=== PATIENT | male | born 2000 | race Caucasian/White ===

== ENCOUNTER 2022-08-03 11:29 | Emergency (ER) | payer SELFPAY ==
[~2022-08-03] VITALS: Ht 180.3 cm; Wt 93.2 kg
[~2022-08-03 11:29] MED LIST: AMOXICILLIN 50500 MG PO; NO HOME MEDICATIONS
[2022-08-03 12:34] VITALS: TEMP 98.4
[2022-08-03] MEDS ORDERED: PREDNISONE20 MG PO (14:58)
[2022-08-03 15:22] VITALS: BP 142/68; PULSE 64
== END 2022-08-03 15:23 | disposition home or self-care (01) ==
LOC: COL.ER 11:29
DX: M54.31 Sciatica, right side (principal); F17.210 Nicotine dependence, cigarettes, uncomplicated

== ENCOUNTER 2024-05-27 17:17 | Emergency (ER) | payer SELFPAY ==
[~2024-05-27] VITALS: Ht 182.9 cm; Wt 93.2 kg
[~2024-05-27 17:17] MED LIST changes: +PREDNISONE20 MG PO
[2024-05-27 17:23] VITALS: TEMP 98.2
[2024-05-27 17:56] LABS: BASO # 0.1 K/mm3 (0.0-0.2); BASO % 1.1 % (0.0-2.0); EOS # 0.3 K/mm3 (0.0-0.7); EOS % 4.1 % (0.0-4.0); GRAN # 3.7 K/mm3 (1.4-6.5); GRAN % 55.8 % (42.2-75.2); HEMATOCRIT 39.1 % (42.0-52.0); HEMOGLOBIN 13.1 g/dl (13.5-18.0); LYMPH % 29.6 % (20.0-51.0); MEAN CELL VOLUME 90 fl (80.0-100.0); MEAN CORPUSCULAR HEMOGLOBIN 30 pg (27-31); MEAN CORPUSCULAR HGB CONC 34 g/dl (33.0-37.0); MEAN PLATELET VOLUME 10.1 fl (7.4-10.4); MONO # 0.6 K/mm3 (0.1-0.6); MONO % 9.2 % (1.7-9.3); PLATELET COUNT 255 K/mm3 (130-400); RED BLOOD COUNT 4.37 M/mm3 (4.20-5.60); REDCELL DISTRIBUTION WIDTH-CV 11.8 % (11.5-14.5)
[2024-05-27 18:17] LABS: ALANINE AMINOTRANSFERASE 35 U/L (0-55); ALBUMIN 4.1 g/dL (3.5-5.0); ALKALINE PHOSPHATASE 45 U/L (40-150); ANION GAP 10 mmol/L (7-16); AST,SGOT 26 U/L (5-34); BILIRUBIN,TOTAL 0.6 mg/dL (0.2-1.2); BLOOD UREA NITROGEN 12 mg/dL (9-21); CALCIUM 9.1 mg/dL (8.4-10.2); CHLORIDE 102 mEq/L (98-107); CREATININE, serum 1.05 mg/dL (0.72-1.25); GLUCOSE 94 mg/dL (70-99); POTASSIUM 3.8 mEq/L (3.5-4.5); SODIUM 138 mEq/L (136-145); TOTAL PROTEIN 7.6 g/dl (6.2-8.1)
[2024-05-27 18:25] LABS: TROPONIN-I < 0.010 ng/mL (0.00-0.033)
[2024-05-27 19:31] VITALS: BP 154/85; PULSE 60
== END 2024-05-27 19:37 | disposition home or self-care (01) ==
LOC: COL.ER 17:17
PROVIDERS: Nurse Practitioner
DX: K21.9 Gastro-esophageal reflux disease without esophagitis (principal); F17.290 Nicotine dependence, other tobacco product, uncomplicated